=== PATIENT | male | born 1995 | race Hispanic/Latino ===

== ENCOUNTER 2018-05-13 02:37 | Inpatient (IN) | payer OTHER, SELFPAY ==
[2018-05-13] MEDS ORDERED: Morphine 4 MG/ML VIAL ONE ×2 (02:54→04:05)
[2018-05-13] MEDS ORDERED: Ondansetron HCl/PF 4 MG/2 ML Vial ONE ×2 (02:54→11:19)
[2018-05-13 02:58] LABS: #Basophils 0.1 thou/uL (0.0-0.2); #Eosinphils 0.4 thou/uL (0.0-0.7); #Lymphocytes 3.4 thou/uL (1.20-3.40); #Monocytes 0.8 thou/uL (0.11-0.59); #Neutrophils 13.6 thou/uL (1.40-6.50); %Basophils 0.7 % (0.0-1.0); %Eosinophils 1.9 % (0.0-10.0); %Lymphocytes 18.7 % (21.0-51.0); %Monocytes 4.1 % (0.0-10.0); %Neutrophils 74.5 % (42.0-75.0); Mean Corpuscular HGB CONC 35.6 g/dL (32.0-36.0); Mean Corpuscular Hemoglobin 31.3 pg (27.0-31.0); Mean Corpuscular Volume 87.9 fL (78.0-98.0); Mean Platelet Volume 7.1 fL (7.4-10.4); Platelet Count 257 thou/uL (130-400); RBC Distribution Width 11.8 % (11.5-14.5); Red Blood Cell (RBC) Count 4.78 mill/uL (4.70-6.10); White Blood Cell (WBC) Count 18.2 thou/uL (4.8-10.8)
[2018-05-13] MEDS ORDERED: CEFAZOLIN/Water 2 GM/20 ML SYRINGE SLOW IVP SCH (03:00)
[2018-05-13 03:10] LABS: INR-International Normal Ratio 1.1; PTT 29.5 SEC (22.9-36.1); Prothrombin Time 14.5 SEC (12.0-14.7)
[2018-05-13 03:13] LABS: ALT (SGPT) 32 U/L (8-55); AST (SGOT) 31 U/L (5-34); Albumin 4.5 g/dL (3.5-5.0); Alcohol 144 mg/dL (Less than 10); Alkaline Phosphatase 66 U/L (40-150); Anion Gap 16 mmol/L (10-20); BUN (Urea Nitrogen) 11 mg/dL (8.9-20.6); Bilirubin, Total 0.6 mg/dL (0.2-1.2); Calc. Creatinine Clearance 0 mL/min (70-130); Calcium 8.8 mg/dL (7.8-10.44); Carbon Dioxide 21 mmol/L (22-29); Chloride 108 mmol/L (98-107); Estimated GFR-MDRD Greater than 90; Globulin 2.6 g/dL (2.4-3.5); Glucose 143 mg/dL (70-105); Lipase 14 U/L (8-78); Potassium 3.2 mmol/L (3.5-5.1); Protein, Total 7.1 g/dL (6.0-8.3); Sodium 142 mmol/L (136-145)
[2018-05-13] MEDS ORDERED: Adacel (T-DAP) 0.5 ML VIAL ONE (03:44)
[2018-05-13] MEDS ORDERED: Dextrose 50% Abboject 50 ML SYRINGE SLOW IVP PRN (04:09)
[2018-05-13] MEDS ORDERED: Ondansetron ODT 4 MG TAB PO PRN (04:09)
[2018-05-13] MEDS ORDERED: Ondansetron HCl/PF 4 MG/2 ML Vial IVP PRN ×2 (04:09→13:22)
[2018-05-13] MEDS ORDERED: Dextrose 5% in Water 1,000 ML IV PRN (04:09)
[2018-05-13] MEDS ORDERED: Cyclobenzaprine 10 MG TAB ONE (04:25)
[2018-05-13 05:28] VITALS: BMI 28.8
[2018-05-13] MEDS: Acetaminophen 1,000 MG in Premix Bag 1 BAG IVPB SCH ×2 (05:47→14:12)
[2018-05-13] MEDS ORDERED: Multivitamins, Adult 10 ML, Folic Acid 1 MG, Thiamine HCl 100 MG in Dextrose 5 %-0.45 %... IV SCH (06:00)
[2018-05-13] MEDS: Famotidine/PF 20 mg/2ml Vial SLOW IVP SCH ×2 (07:55→21:12)
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
[2018-05-13] MEDS ORDERED: Fentanyl 100 MCG/2 ML VIAL ONE ×3 (09:02→11:57)
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
--- NOTE | 2018-05-13 09:22 | RAD ---
2 VIEWS LEFT TIBIA AND FIBULA: Date: 05/13/18 HISTORY: FINDINGS: Two views of left tibia and fibula demonstrate a comminuted fracture involving the proximal portion o f the tibia. This appears to involve the tibial spine, as well as extending inferiorly into the proxi mal left tibial metaphysis. There is also lateral extension into the lateral tibial plateau. There is a hemarthrosis present. The rest of the mid and distal left tibia and fibula are unremarkabl e. IMPRESSION: Comminuted interarticular proximal tibial fracture. POS: [facility]
[2018-05-13] MEDS ORDERED: ISOVUE-370 76%-LOCM 1 ML ONE (09:59)
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
[2018-05-13] MEDS ORDERED: Succinylcholine Chloride 20 MG/ML 10 ml SYRINGE FS ONE (11:19)
[2018-05-13] MEDS ORDERED: Dexamethasone 20 MG/5 ML VIAL ONE (11:19)
[2018-05-13] MEDS ORDERED: Lidocaine 1% PF 5 ML VIAL ONE (11:19)
[2018-05-13] MEDS ORDERED: PROPOFOL 200 MG/20 ML VIAL ONE (11:19)
[2018-05-13] MEDS ORDERED: HYDROmorphone 0.5 MG/0.5 ML SYRINGE ONE ×2 (12:45→12:56)
[2018-05-13] MEDS ORDERED: Morphine Sulfate 2 MG/ML SYRINGE SLOW IVP PRN (13:22)
[2018-05-13] MEDS ORDERED: Promethazine HCl 25 MG/ML VIAL IM PRN (13:22)
[2018-05-13] MEDS ORDERED: Promethazine HCl 25 MG/ML VIAL SLOW IVP PRN (13:22)
[2018-05-13] MEDS ORDERED: Meperidine HCl/PF 25 MG/ML VIAL SLOW IVP PRN (13:22)
[2018-05-13] MEDS ORDERED: Ketorolac Tromethamine 30 MG/ML VIAL IVP PRN (13:22)
[2018-05-13] MEDS ORDERED: HYDROmorphone 2 MG/ML VIAL SLOW IVP PRN (13:22)
[2018-05-13 13:42] LABS: Hemoglobin 12.8 g/dL (14.0-18.0)
[2018-05-13] MEDS: Ibuprofen 800 MG TAB PO SCH ×2 (14:27→21:12)
--- NOTE | 2018-05-13 15:09 | RAD ---
6 INTRAOPERATIVE RADIOGRAPHS LEFT FEMUR: Date: 05/13/18 HISTORY: Left femoral fracture. FINDINGS: AP and lateral views of left femur obtained. Images demonstrate open reduction and internal fixation of the comminuted left femoral fracature. There is placement of an intraosseous jenna in mid shaft of l eft femur. Proximal distal fracture fragments are in good position post reduction. IMPRESSION: Open reduction and internal fixation of left femoral fracture. POS: [facility]
--- NOTE | 2018-05-13 15:13 | RAD ---
2 VIEWS LEFT LEG: Date: 05/13/18 HISTORY: Open reduction and internal fixation tibial fracture. FINDINGS: Two postoperative radiographs of left leg obtained. Images demonstrate open reduction and internal fi xation of the proximal tibial fracture. Proximal and distal fracture fragments are in good position p ost reduction. Plates and screws in position. IMPRESSION: Open reduction and internal fixation of proximal left tibial fracture. POS: [facility]
--- NOTE | 2018-05-13 15:19 | CT ---
CT OF THE BRAIN WITHOUT CONTRAST: Date: 05/13/18 COMPARISON: 05/13/18. HISTORY: Subarachnoid hemorrhage. TECHNIQUE: Multiple contiguous axial images were obtained in a CT of the brain without contrast. FINDINGS: There is a stable amount of subarachnoid hemorrhage in the right cerebral hemisphere. This is seen al darleen the sylvian fissure and in the right frontal lobe. There is no midline shift. No intraventricular hemorrhage is seen. No confluent infarction is seen. The calvarium and overlying soft tissues are unremarkable. The visualized paranasal sinuses and masto id air cells are well aerated. IMPRESSION: Stable subarachnoid hemorrhage. POS: [facility]
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
[2018-05-13] MEDS: Lactated Ringer's 1,000 ML IV SCH (18:16)
[2018-05-13] MEDS: Acetaminophen 500 MG TAB PO SCH (18:18)
[2018-05-13] MEDS: traMADol HCl 50 MG TAB PO SCH (18:18)
[2018-05-13] MEDS: Scopolamine 1.5 mg/72 hour Patch TOP SCH (18:18)
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
[2018-05-13] MEDS: Cyclobenzaprine 10 MG TAB PO PRN (21:13)
[2018-05-14] MEDS: traMADol HCl 50 MG TAB PO SCH ×5 (01:00→23:34)
[2018-05-14] MEDS: Acetaminophen 500 MG TAB PO SCH ×5 (01:00→23:34)
[2018-05-14] MEDS: Lactated Ringer's 1,000 ML IV SCH (04:53)
[2018-05-14] MEDS: Ibuprofen 800 MG TAB PO SCH ×3 (04:59→21:55)
[2018-05-14 06:23] LABS: #Lymphocytes 0.9 thou/uL (1.20-3.40); #Monocytes 0.8 thou/uL (0.11-0.59); #Neutrophils 5.1 thou/uL (1.40-6.50); %Basophils 0.2 % (0.0-1.0); %Eosinophils 0.1 % (0.0-10.0); %Lymphocytes 12.7 % (21.0-51.0); %Monocytes 12.1 % (0.0-10.0); %Neutrophils 74.9 % (42.0-75.0); Anion Gap 11 mmol/L (10-20); BUN (Urea Nitrogen) 9 mg/dL (8.9-20.6); Calc. Creatinine Clearance 208 mL/min (70-130); Calcium 8.3 mg/dL (7.8-10.44); Carbon Dioxide 25 mmol/L (22-29); Chloride 105 mmol/L (98-107); Estimated GFR-MDRD Greater than 90; Glucose 131 mg/dL (70-105); Hemoglobin 10.4 g/dL (14.0-18.0); Mean Corpuscular HGB CONC 34.1 g/dL (32.0-36.0); Mean Corpuscular Hemoglobin 30.6 pg (27.0-31.0); Mean Corpuscular Volume 89.5 fL (78.0-98.0); Mean Platelet Volume 7.6 fL (7.4-10.4); Phosphorus 3.1 mg/dL (2.3-4.7); Platelet Count 172 thou/uL (130-400); Potassium 3.9 mmol/L (3.5-5.1); RBC Distribution Width 11.8 % (11.5-14.5); Sodium 137 mmol/L (136-145); White Blood Cell (WBC) Count 6.8 thou/uL (4.8-10.8)
--- NOTE | 2018-05-14 07:26 | PRG ---
DATE OF SERVICE: 05/14/2018 I saw Mr. Damion Doan in his hospital room this morning. He has had his femur fixed. Follow up CT scan of the brain was done yesterday afternoon. He has been resting comfortably overnight. As I enter the room, he wakes from the sleep. He answers questions appropriately. He does know [place]. I do not find any new neurological deficits. I reviewed a follow up imaging and there is stabi lity to decrease in the amount of traumatic subarachnoid blood over the right hemisphere. There is n o new midline shift. No new mass effect. No new areas of hyperdensity or ischemia. Mr. Doan is stable neurologically and the scan is improving. We will follow up in 2 weeks with a final scan. His collar was removed yesterday.
[2018-05-14] MEDS: Cyclobenzaprine 10 MG TAB PO PRN (08:33)
[2018-05-14] MEDS: Famotidine/PF 20 mg/2ml Vial SLOW IVP SCH ×2 (08:33→21:54)
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
[2018-05-14] MEDS: traMADol HCl 50 MG TAB PO PRN (15:50)
[2018-05-15] MEDS: traMADol HCl 50 MG TAB PO SCH ×4 (05:52→23:50)
[2018-05-15] MEDS: Ibuprofen 800 MG TAB PO SCH ×3 (05:52→21:20)
[2018-05-15] MEDS: Acetaminophen 500 MG TAB PO SCH ×4 (05:53→23:50)
[2018-05-15] MEDS ORDERED: Bisacodyl 10 MG SUPP PR SCH (08:15)
[2018-05-15] MEDS: Polyethylene Glycol 3350 17 GM Packet PO SCH (08:23)
[2018-05-15] MEDS: Senokot 8.6 MG TAB PO SCH ×2 (08:23→21:20)
[2018-05-15] MEDS: Famotidine/PF 20 mg/2ml Vial SLOW IVP SCH ×2 (08:23→21:19)
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
[2018-05-16 04:31] LABS: #Eosinphils 0.4 thou/uL (0.0-0.7); #Lymphocytes 1.4 thou/uL (1.20-3.40); #Monocytes 0.4 thou/uL (0.11-0.59); #Neutrophils 2.7 thou/uL (1.40-6.50); %Basophils 0.7 % (0.0-1.0); %Eosinophils 7.9 % (0.0-10.0); %Lymphocytes 28.4 % (21.0-51.0); %Monocytes 8.2 % (0.0-10.0); %Neutrophils 54.8 % (42.0-75.0); Hemoglobin 8.7 g/dL (14.0-18.0); Mean Corpuscular HGB CONC 35.1 g/dL (32.0-36.0); Mean Corpuscular Hemoglobin 31.2 pg (27.0-31.0); Mean Corpuscular Volume 88.8 fL (78.0-98.0); Platelet Count 173 thou/uL (130-400); RBC Distribution Width 11.5 % (11.5-14.5); White Blood Cell (WBC) Count 4.9 thou/uL (4.8-10.8)
[2018-05-16] MEDS: traMADol HCl 50 MG TAB PO SCH ×3 (05:50→18:20)
[2018-05-16] MEDS: Acetaminophen 500 MG TAB PO SCH ×3 (05:51→18:19)
[2018-05-16] MEDS: Ibuprofen 800 MG TAB PO SCH (05:51)
[2018-05-16] MEDS ORDERED: Magnesium Citrate 300 ML BOT PO SCH (08:45)
[2018-05-16] MEDS: Polyethylene Glycol 3350 17 GM Packet PO SCH (10:05)
[2018-05-16] MEDS: Famotidine/PF 20 mg/2ml Vial SLOW IVP SCH ×2 (10:05→20:46)
[2018-05-16] MEDS: Bisacodyl 10 MG SUPP PR SCH ×2 (10:05→21:56)
[2018-05-16] MEDS: Senokot 8.6 MG TAB PO SCH ×2 (10:05→20:46)
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
[2018-05-16] MEDS: Scopolamine 1.5 mg/72 hour Patch TOP SCH (18:20)
[2018-05-17] MEDS: Acetaminophen 500 MG TAB PO SCH ×4 (00:14→17:10)
[2018-05-17] MEDS: traMADol HCl 50 MG TAB PO SCH ×2 (00:14→05:44)
[2018-05-17] MEDS ORDERED: traMADol HCl 50 MG TAB PO PRN (06:44)
[2018-05-17] MEDS: Polyethylene Glycol 3350 17 GM Packet PO SCH (08:52)
[2018-05-17] MEDS: Senokot 8.6 MG TAB PO SCH ×2 (08:52→21:41)
[2018-05-17] MEDS: Bisacodyl 10 MG SUPP PR SCH ×2 (08:52→23:26)
[2018-05-17] MEDS: Famotidine 20 MG TAB PO SCH ×2 (08:52→21:42)
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
[2018-05-17] MEDS: traMADol HCl 50 MG TAB PO PRN ×2 (11:53→17:11)
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
[2018-05-17] MEDS: Cyclobenzaprine 10 MG TAB PO PRN (14:25)
[2018-05-18] MEDS: Acetaminophen 500 MG TAB PO SCH ×4 (01:07→14:37)
[2018-05-18] MEDS: Polyethylene Glycol 3350 17 GM Packet PO SCH (09:20)
[2018-05-18] MEDS: Bisacodyl 10 MG SUPP PR SCH (09:25)
[2018-05-18] MEDS: Senokot 8.6 MG TAB PO SCH (09:25)
[2018-05-18] MEDS: Famotidine 20 MG TAB PO SCH (09:25)
[2018-05-18] MEDS: traMADol HCl 50 MG TAB PO PRN ×2 (09:26→14:32)
[2018-05-18 17:21] VITALS: BP 124/80; TEMP 98.5
== END 2018-05-18 18:11 | disposition home or self-care (01) | DRG 956 ==
LOC: EDBD 02:37 → ERS 02:37 → CCU 04:54 → SURG A 11:21
PROVIDERS: ADMIT Surgery; ATTEND Surgery
PROC: 0QSH04Z Reposition Left Tibia with Internal Fixation Device, Open Approach (ICD-10-PCS; principal; 2018-05-13)
PROC: 0QS906Z Reposition Left Femoral Shaft with Intramedullary Internal Fixation Device, Open Approach (ICD-10-PCS; 2018-05-13)
DX: S72.352B Displaced comminuted fracture of shaft of left femur, initial encounter for open fracture type I or II (principal); S06.6X9A Traumatic subarachnoid hemorrhage with loss of consciousness of unspecified duration, initial encounter; S82.142B Displaced bicondylar fracture of left tibia, initial encounter for open fracture type I or II; D62 Acute posthemorrhagic anemia; V89.2XXA Person injured in unspecified motor-vehicle accident, traffic, initial encounter; Y92.410 Unspecified street and highway as the place of occurrence of the external cause; R40.2413 Glasgow coma scale score 13-15, at hospital admission; F10.129 Alcohol abuse with intoxication, unspecified; S42.115A Nondisplaced fracture of body of scapula, left shoulder, initial encounter for closed fracture; R33.9 Retention of urine, unspecified; Z53.29 Procedure and treatment not carried out because of patient's decision for other reasons
CPT/HCPCS: 36415; 70450; 71260; 72125; 74177; 76001; 80048; 80053; 80307; 83690; 83735; 84100; 85025; 85610; 85730; 86850; 86900; 86901; 90471; 90715; 93970; 96361; 96374; 96375; 96376; C1713; C1769; G0390; G8978-GP-CM; G8979-GP-CJ; G8987-GO-CK; G8988-GO-CJ; G8996-GN-CM; G8997-GN-CI; J0131; J1100; J1170; J2001; J2270; J2405; J2704; J3010; J3411; J7042; S0028